=== PATIENT | female | born 2000 | race Caucasian/White ===

== ENCOUNTER 2022-03-10 20:58 | Inpatient (IN) | payer OTHER ==
[2022-03-10] MEDS ORDERED: ACETAMINOPHEN 500 MG TABLET (FP) PO ONE (22:23)
[2022-03-10] MEDS ORDERED: ACETAMINOPHEN 325 MG TABLET (FP) ONE (22:57)
[2022-03-10 23:00] LABS: BASO % 0.3 % (0-2.0); EOS % 0.8 % (0-4.5); HEMATOCRIT 38.8 % (32.4-45.2); HEMOGLOBIN 12.4 GM/dL (10.7-15.3); LYMPH % 10.7 % (8-40); MCH 25.3 pg (25.7-33.7); MCHC 31.9 g/dl (32.0-36.0); MEAN CELL VOLUME 79.4 fl (80-96); MEAN PLT VOLUME 9.2 fl (7.5-11.1); MONO % 5.8 % (3.8-10.2); NEUT % 82.4 % (42.8-82.8); PLATELET COUNT 351 10^3/uL (134-434); RBC 4.89 M/mm3 (3.60-5.2); RDW 15.1 % (11.6-15.6); WHITE BLOOD COUNT 14.8 K/mm3 (4.0-10.0)
[2022-03-10 23:11] LABS: ALBUMIN 3.1 g/dl (3.4-5.0); BLOOD UREA NITROGEN 7.3 mg/dL (7-18); CALCIUM 9.3 mg/dL (8.5-10.1)
[2022-03-10 23:14] LABS: CREATININE 0.5 mg/dL (0.55-1.3)
[2022-03-10 23:16] LABS: BILIRUBIN,TOTAL 0.5 mg/dL (0.2-1); TOT PROT 7.5 g/dl (6.4-8.2)
[2022-03-11 01:24] LABS: HCG,QUALITATIVE URINE Negative
[2022-03-11 02:06] LABS: EPI CELLS 6 /uL (0-25.1); HYALINE CASTS 7 /uL (0-3.1); PH,URINE 6.5 (5.0-8.0); URINE APPEARANCE CLEAR; URINE BACTERIA 116 /uL (0-1359); URINE BILIRUBIN NEGATIVE (NEGATIVE); URINE COLOR YELLOW; URINE GLUCOSE (UA) NEGATIVE (NEGATIVE); URINE KETONE NEGATIVE (NEGATIVE); URINE LEUK ESTERASE 3+ (NEGATIVE); URINE NITRITE NEGATIVE (NEGATIVE); URINE PROTEIN TRACE (NEGATIVE); URINE RBC 249 /uL (0-23.9); URINE UROBILINOGEN 0.2 mg/dL (0.2-1.0); URINE WBC 585 /uL (0-25.8)
[2022-03-11] MEDS ORDERED: PIPERACILLIN/TAZOB 4.5 GM 4.5 GM in DEXTROSE 5%-WATER 100 ML IVPB ONE (06:25)
[2022-03-11] MEDS ORDERED: morphine CARPU-JECT 4 MG/1 ML DISP.SYRIN IVPUSH ONE (06:25)
[2022-03-11] MEDS ORDERED: PIPERACILLIN/TAZOB 4.5 GM 4.5 GM/100 ML BAG IVPB ONE (06:28)
[2022-03-11] MEDS ORDERED: morphine SULFATE 4 MG/ML VIAL ONE (06:28)
[2022-03-11] MEDS ORDERED: ONDANSETRON 4 MG/2 ML VIAL IVPUSH PRN (17:22)
[2022-03-11 18:35] VITALS: BMI 27.5
[2022-03-11] MEDS: PIPERACILLIN/TAZOB 3.375 GM 3.375 GM in DEXTROSE 5%-WATER - 50 ML IVPB SCH (18:46)
[2022-03-11] MEDS: LACTATED RINGERS SOLUTION 1,000 ML IV SCH (18:46)
[2022-03-11] MEDS: CLINDAMYCIN 900 MG PREMIX IVPB 900 MG/50 ML BAG IVPB SCH (19:31)
[2022-03-12] MEDS: PIPERACILLIN/TAZOB 3.375 GM 3.375 GM in DEXTROSE 5%-WATER - 50 ML IVPB SCH (00:47)
[2022-03-12] MEDS: IBUPROFEN 800 MG/8 ML IJ IVPB PRN ×2 (02:02→22:33)
[2022-03-12] MEDS: CLINDAMYCIN 900 MG PREMIX IVPB 900 MG/50 ML BAG IVPB SCH ×2 (02:02→10:42)
[2022-03-12 08:24] LABS: BASO % 0.4 % (0-2.0); EOS % 2.9 % (0-4.5); HEMATOCRIT 34.5 % (32.4-45.2); HEMOGLOBIN 10.9 GM/dL (10.7-15.3); LYMPH % 43.7 % (8-40); MCH 25.1 pg (25.7-33.7); MCHC 31.6 g/dl (32.0-36.0); MEAN CELL VOLUME 79.3 fl (80-96); MEAN PLT VOLUME 9.9 fl (7.5-11.1); MONO % 8.6 % (3.8-10.2); NEUT % 44.4 % (42.8-82.8); PLATELET COUNT 326 10^3/uL (134-434); RBC 4.35 M/mm3 (3.60-5.2); RDW 15.3 % (11.6-15.6); WHITE BLOOD COUNT 8.5 K/mm3 (4.0-10.0)
[2022-03-12] MEDS: LACTATED RINGERS SOLUTION 1,000 ML IV SCH ×2 (08:38→18:08)
[2022-03-12 08:47] LABS: ALBUMIN 2.6 g/dl (3.4-5.0)
[2022-03-12 08:49] LABS: CALCIUM 8.9 mg/dL (8.5-10.1)
[2022-03-12 08:51] LABS: CREATININE 0.5 mg/dL (0.55-1.3); MAGNESIUM 1.8 mg/dL (1.8-2.4); PHOSPHOROUS 4.8 mg/dL (2.5-4.9); TOT PROT 6.6 g/dl (6.4-8.2)
[2022-03-12 08:52] LABS: BILIRUBIN,TOTAL 0.6 mg/dL (0.2-1)
[2022-03-12] MEDS: ENOXAPARIN NA (PORCINE) 40 MG/0.4 ML DISP.SYRIN SQ SCH (09:50)
[2022-03-12] MEDS ORDERED: PIPERACILLIN/TAZOB 3.375 GM 3.375 GM in DEXTROSE 5%-WATER - 50 ML IVPB SCH (10:00)
[2022-03-12] MEDS: AMOX TR/POT CLAV 875MG/125MG TABLETS (FP) PO SCH (16:51)
[2022-03-13 04:45] VITALS: RESP 18
[2022-03-13] MEDS: LACTATED RINGERS SOLUTION 1,000 ML IV SCH (04:48)
[2022-03-13 06:14] VITALS: BP 129/56; PULSE 55; TEMP 98.4
[2022-03-13 07:42] LABS: BASO % 0.4 % (0-2.0); EOS % 2.6 % (0-4.5); HEMOGLOBIN 10.8 GM/dL (10.7-15.3); LYMPH % 34.9 % (8-40); MCH 24.9 pg (25.7-33.7); MCHC 31.7 g/dl (32.0-36.0); MEAN CELL VOLUME 78.7 fl (80-96); MEAN PLT VOLUME 9.8 fl (7.5-11.1); MONO % 8.2 % (3.8-10.2); NEUT % 53.9 % (42.8-82.8); PLATELET COUNT 323 10^3/uL (134-434); RBC 4.33 M/mm3 (3.60-5.2); RDW 15.2 % (11.6-15.6); WHITE BLOOD COUNT 9.5 K/mm3 (4.0-10.0)
[2022-03-13 08:10] LABS: CALCIUM 8.9 mg/dL (8.5-10.1)
[2022-03-13 08:11] LABS: BLOOD UREA NITROGEN 6.8 mg/dL (7-18)
[2022-03-13 08:14] LABS: CREATININE 0.4 mg/dL (0.55-1.3)
[2022-03-13] MEDS: AMOX TR/POT CLAV 875MG/125MG TABLETS (FP) PO SCH (09:20)
[2022-03-13] MEDS: ENOXAPARIN NA (PORCINE) 40 MG/0.4 ML DISP.SYRIN SQ SCH (09:20)
== END 2022-03-13 15:55 | disposition home or self-care (01) | DRG 561 ==
LOC: JER 20:58 → JERBED 03-11 06:33 → J7W 03-11 18:23
PROVIDERS: ADMIT Internal Medicine; ATTEND Internal Medicine
DX: O86.12 Endometritis following delivery (principal); R10.9 Unspecified abdominal pain
CPT/HCPCS: 36415; 74177-TC; 76830-TC; 80048; 80053; 81003; 83735; 84100; 84703; 85025; 86850; 86900; 86901; 87040; 87077; 87086; 93005; 93010; 99285-25; C9803-CS; Q9967; U0003; U0005